=== PATIENT | male | born 1960 | race Caucasian/White ===

== ENCOUNTER 2017-05-10 15:26 | Emergency (ER) | payer OTHER ==
[~2017-05-10] VITALS: Ht 177.8 cm; Wt 86.0 kg
[2017-05-10 15:30] VITALS: BP 141/103
--- NOTE | 2017-05-10 15:57 | NUR ---
Patient ambulated to bed 5 after providing a urine specimen. RN evaluating patient at bedside.
[2017-05-10] MEDS ORDERED: KETOROLAC 60 MG/2 ML VIAL IM ONE (16:05)
--- NOTE | 2017-05-10 16:09 | NUR ---
56M BIB SELF C/O 06/04 SHARP BL LOWER BACK PAIN X A WEEK AND A HALF; PT DENIES ANY RECENT FALLS OR INJURY; PATIENT ABLE TO MOVE ALL EXTREMITIES; PT IS AAOX4; DENIES N/V/D; SKIN IS PINK/WARM/DRY; LUNGS CLEAR BL; HR EVEN AND REGULAR; PT DENIES ANY FEVER, CP, SOB, OR COUGH AT THIS TIME;PATIENT POSITIONED FOR COMFORT; HOB ELEVATED; ALL NEEDS MET AT THIS TIME; WILL CONTINUE TO MONITOR
[2017-05-10 16:55] VITALS: BP 141/103
--- NOTE | 2017-05-10 16:56 | NUR ---
Patient discharged with v/s stable. Written and verbal after care instructions given and explained. Patient alert, oriented and verbalized understanding of instructions. Ambulatory with steady gait. All questions addressed prior to discharge. ID band removed. Patient advised to follow up with PMD. Rx of Motrin and [place] given. Patient educated on indication of medication including possible reaction and side effects. Opportunity to ask questions provided and answered.
== END 2017-05-10 16:56 | disposition home or self-care (01) ==
LOC: MED 15:26
DX: M54.5 Low back pain (principal)
CPT/HCPCS: 81002; 96372; 99283; J1885

== ENCOUNTER 2018-11-01 20:35 | Emergency (ER) | payer OTHER ==
[~2018-11-01] VITALS: Ht 180.3 cm; Wt 85.3 kg
[2018-11-01 20:56] VITALS: BP 147/77
--- NOTE | 2018-11-01 20:59 | NUR ---
TO LOBBY A/W BED, SELINA SZYMANSKI NOTED
--- NOTE | 2018-11-01 21:50 | NUR ---
58/M PRESENTS TO ED WITH SIGNIFICANT OTHER, C/O 8/10 CONSTANT LOWER BACK PAIN, SINCE THIS AM. S/P BENDING OVER TO GRAB SOMETHING FROM THE FLOOR. DENIES TRAUMA, FEVER, CP, SOB, N/V. PT AOX4, GCS 15, AMBULATES WITH MODERATE AMOUNT OF PAIN AND FACIAL GRIMACING, RR EVEN AND UNLABORED. DENIES MED HX
--- NOTE | 2018-11-01 21:51 | NUR ---
NO OBVIOUS ABNORMALITY, REDNESS OR BRUISING ON BACK, SLIGHTLY TENDER TO TOUCH.
[2018-11-01] MEDS ORDERED: MORPHINE SULFATE 4 MG/ML SYR IM ONE (22:55)
--- NOTE | 2018-11-01 23:11 | NUR ---
Patient discharged with v/s stable. Written and verbal after care instructions given and explained. Patient alert, oriented and verbalized understanding of instructions. Ambulatory with steady gait. All questions addressed prior to discharge. ID band removed. Patient advised to follow up with PMD. Rx of VALIUM given. Patient educated on indication of medication including possible reaction and side effects. Opportunity to ask questions provided and answered.
[2018-11-01 23:14] VITALS: BP 136/82
== END 2018-11-01 23:11 | disposition home or self-care (01) ==
LOC: MED 20:35
DX: M54.5 Low back pain (principal)
CPT/HCPCS: 81002; 96372; 99283; J2270

== ENCOUNTER 2024-02-05 04:40 | Emergency (ER) | payer OTHER ==
[~2024-02-05] VITALS: Ht 180.3 cm; Wt 85.7 kg
[2024-02-05 04:52] VITALS: BP 173/103; PULSE 61; RESP 20; TEMP 97.1; O2SAT 98
[2024-02-05] MEDS: NACL 0.9% 1,000 ML IV ONE ×2 (05:23→10:42)
[2024-02-05] MEDS: MORPHINE SULFATE 4 MG/ML SYR IVP ONE (05:24)
[2024-02-05] MEDS: ONDANSETRON 4 MG/2 ML VIAL IVP ONE (05:26)
[2024-02-05 05:39] LABS: APPEARANCE,URINE CLEAR (CLEAR); BASOPHILS # (AUTO) 0.1 K/uL (0.00-0.22); BASOPHILS % (AUTO) 0.6 % (0.0-2.0); BILIRUBIN,URINE NEGATIVE (NEGATIVE); BLOOD, URINE TRACE-I (NEGATIVE); COLOR,URINE YELLOW (YELLOW); EOSINOPHILS # (AUTO) 0.1 K/uL (0-0.4); EOSINOPHILS % (AUTO) 0.8 % (0.0-4.0); HEMATOCRIT 40.5 % (36-52); HEMOGLOBIN 14.1 g/dL (12.0-18.0); LEUKOCYTE ESTERASE ,URINE NEGATIVE (NEGATIVE); LYMPHOCYTES # (AUTO) 1.5 K/uL (2.0-11.5); MEAN CORPUSCULAR HEMOGLOBIN 31 pg (27-31); MEAN CORPUSCULAR HGB CONC 35 g/dL (33-37); MEAN CORPUSCULAR VOLUME 88.7 fL (80-94); MONOCYTES # (AUTO) 0.7 K/uL (0.8-1.0); MONOCYTES % (AUTO) 6.6 % (1.7-9.3); NEUTROPHILS # (AUTO) 8.3 K/uL (1.8-7.7); NITRITE, URINE NEGATIVE (NEGATIVE); PLATELET COUNT (AUTO) 178 K/uL (140-450); PROTEIN,URINE NEGATIVE (NEGATIVE); RED BLOOD CELL COUNT(AUTO) 4.56 MIL/uL (4.20-6.10); RED CELL DISTRIBUTION WIDTH 12.9 % (11.6-13.7); UGLUCOSE NEGATIVE (NEGATIVE); UROBILINOGEN,URINE 0.2 EU/dL (0.2 - 1); WHITE BLOOD COUNT (AUTO) 10.7 K/uL (4.8-10.8)
[2024-02-05 05:49] LABS: ANION GAP 10.9 (8-16); CALCIUM 8.8 mg/dL (8.5-10.1); CARBON DIOXIDE 28.7 mmol/L (21-32); CREATININE 1.3 mg/dL (0.6-1.3); POTASSIUM 3.6 mmol/L (3.5-5.1)
[2024-02-05 06:02] LABS: BACTERIA,URINE 10-30 (MOD) /HPF (None Seen); MUCUS,URINE 1+ /LPF (None Seen); RBC,URINE >20 (MANY) /HPF (0-5); SQUAMOUS EPITHELIAL CELL,UR 0-3 (FEW) /LPF (0-3 (FEW)); WBC,URINE 0-5 /HPF (0-5)
[2024-02-05 06:05] LABS: BILIRUBIN,DIRECT 0.1 mg/dL (0.0-0.3); TOTAL BILIRUBIN 0.7 mg/dL (0.0-1.0); TOTAL PROTEIN, SERUM 6.7 g/dL (6.4-8.2)
[2024-02-05] MEDS: KETOROLAC 30 MG/ML VIAL IVP ONE (06:21)
[2024-02-05] MEDS ORDERED: CIPR500T4 PO (08:44)
[2024-02-05] MEDS ORDERED: ACET-8905 PO (08:44)
[2024-02-05] MEDS ORDERED: MELO-176 PO (08:44)
[2024-02-05] MEDS ORDERED: TAMS0.4C96 PO (08:44)
[2024-02-05] MEDS ORDERED: cefTRIAXone 1,000 MG VIAL ONE (09:11)
[2024-02-05 12:40] VITALS: BP 149/69; PULSE 64; RESP 15; TEMP 36.55848; O2SAT 99
== END 2024-02-05 12:40 | disposition home or self-care (01) ==
LOC: MED 04:40
DX: N23 Unspecified renal colic (principal); N39.0 Urinary tract infection, site not specified; Z79.1 Long term (current) use of non-steroidal anti-inflammatories (NSAID); Z79.2 Long term (current) use of antibiotics; Z79.899 Other long term (current) drug therapy
CPT/HCPCS: 36415; 74176; 80048; 80076; 81001; 83690; 85025; 96361; 96365; 96375; 99285; J0696; J1885; J2270; J2405